=== PATIENT | female | born 1985 | race Caucasian/White ===

== ENCOUNTER 2018-10-22 23:11 | Inpatient (IN) | payer BC ==
[2018-10-23] MEDS ORDERED: Tranexamic Acid 1,000 MG in Sodium Chloride 0.9% 100 ML IV PRN (00:35)
[2018-10-23] MEDS ORDERED: Sodium Chloride 0.9% 10 ML Syringe FLUSH PRN (00:35)
[2018-10-23] MEDS ORDERED: Methylergonovine 0.2 MG/1 ML Amp IM PRN (00:35)
[2018-10-23] MEDS ORDERED: Carboprost Tromethamine 250 MCG/1 ML Amp IM PRN (00:35)
[2018-10-23] MEDS ORDERED: Ampicillin 2 GM in Sodium Chloride 0.9% 100 ML IV ONE (00:35)
[2018-10-23] MEDS ORDERED: Sodium Chloride 0.9% 2.5 ML Syringe FLUSH PRN (00:35)
[2018-10-23] MEDS ORDERED: Butorphanol 1 MG/ML SDV IVPUSH PRN (00:35)
[2018-10-23] MEDS ORDERED: Misoprostol 200 MCG Tab PO PRN (00:35)
[2018-10-23] MEDS ORDERED: Lidocaine 1% 50 ML MDV INJECT PRN (00:35)
[2018-10-23] MEDS ORDERED: Nalbuphine 10 MG/1 ML Vial IVPUSH PRN ×2 (00:35→14:46)
[2018-10-23] MEDS ORDERED: Water For Irrigation,Sterile 1,000 ML Container IRR PRN (00:35)
[2018-10-23] MEDS ORDERED: Oxytocin/0.9 % Sodium Chloride 30 UNIT/500 ML BAG IV SCH (00:45)
[2018-10-23] MEDS: Lactated Ringers 1,000 ML IV SCH ×2 (01:06→12:33)
--- NOTE | 2018-10-23 01:27 | PCM.PREANE ---
Preanesthetic Assessment - Anesthesia/Transfusion/Family Hx Anesthesia History: Prior Anesthesia Without Reaction Family History of Anesthesia Reaction: No Transfusion History: No Prior Transfusion(s) - Review of Systems General: No Symptoms Pulmonary: No Symptoms Cardiovascular: No Symptoms Gastrointestinal: No Symptoms Neurological: No Symptoms Other: Reports: None - Physical Assessment ASA Class: 2 Mental Status: Alert & Oriented x3 Airway Class: Mallampati = 2 Dentition: Reports: Normal Dentition Thyro-Mental Finger Breadths: 3 Mouth Opening Finger Breadths: 3 ROM/Head Extension: Full Lungs: Clear to Auscultation, Normal Respiratory Effort Cardiovascular: Regular Rate, Regular Rhythm - Lab Values: Laboratory Last Values Membrane Rupture POSITIVE 10/22/18 23:27 - Allergies Allergies/Adverse Reactions: Allergies Allergy/AdvReac Type Severity Reaction Status Date / Time azithromycin Allergy Itching Verified 10/23/18 02:03 - Acknowledgements Anesthesia Type Planned: General Anesthesia, Spinal, Epidural Pt an Appropriate Candidate for the Planned Anesthesia: Yes Alternatives and Risks of Anesthesia Discussed w Pt/Guardian: Yes Pt/Guardian Understands and Agrees with Anesthesia Plan: Yes PreAnesthesia Questionnaire HEENT History: Reports: None Cardiovascular History: Reports: None Respiratory History: Reports: None Gastrointestinal History: Reports: None Genitourinary History: Reports: None TELEPHONE MESSENGER History: Reports: Endometriosis : 4 Para: 3 LMP (Approximate): Musculoskeletal History: Reports: Other (See Below) Other Musculoskeletal History: Chronic pelvic pain d/t endometriosis Neurological History: Reports: None Psychiatric History: Reports: Depression Endocrine/Metabolic History: Reports: Hypothyroidism (Radiated, taking supplements now), Obesity/BMI 30+ Hematologic History: Reports: None Immunologic History: Reports: None Oncologic (Cancer) History: Reports: None Dermatologic History: Reports: None - Infectious Disease History Infectious Disease History: Reports: None - Past Surgical History HEENT Surgical History: Reports: Adenoidectomy GI Surgical History: Reports: Appendectomy, Cholecystectomy Female Surgical History: Reports: Section - HOME MEDS Home Medications: Home Meds Doxylamine Succinate [Unisom] 1 tab PO PRN 10/23/18 [History] Levothyroxine Sodium [Synthroid] 1 tab PO DAILY 10/23/18 [History] PNV95/Ferrous Fumarate/FA [ Tablet] 1 tab PO DAILY 10/23/18 [History] - CURRENT (IN HOUSE) MEDS Current Meds: Current Medications Butorphanol Tartrate (Stadol) 1 mg IVPUSH Q1H PRN PRN Reason: Pain Carboprost Tromethamine (Hemabate Ds) 250 mcg IM ASDIRECTED PRN PRN Reason: Post Hemorrhage Tranexamic Acid 1,000 mg/ (Sodium Chloride) 110 mls @ 660 mls/hr IV ONETIME PRN PRN Reason: Bleeding Lactated Ringer's (Ringers, Lactated) 1,000 mls @ 150 mls/hr IV ASDIRECTED [facility] Last Admin: 10/23/18 01:06 Dose: 150 mls/hr Oxytocin/Sodium Chloride (Oxytocin 30 Unit/500 Ml-Ns) 30 unit in 500 mls @ 999 mls/hr IV TITRATE [facility] Ampicillin Sodium 1 gm/ Sodium (Chloride) 50 mls @ 100 mls/hr IV Q4H [facility] Lidocaine HCl (Xylocaine 1%) 50 ml INJECT ONETIME PRN PRN Reason: Laceration repair Methylergonovine Maleate (Methergine) 0.2 mg IM ASDIRECTED PRN PRN Reason: Post Hemorrhage Misoprostol (Cytotec) 200 mcg PO ONETIME PRN PRN Reason: Post Hemorrhage Nalbuphine HCl (Nubain) 10 mg IVPUSH Q1H PRN PRN Reason: Pain (severe 7-10) Sodium Chloride (Saline Flush) 10 ml FLUSH ASDIRECTED PRN PRN Reason: Keep Vein Open Sodium Chloride (Saline Flush) 2.5 ml FLUSH ASDIRECTED PRN PRN Reason: Keep Vein Open Sterile Water (Sterile Water For Irrigation) 1,000 ml IRR ASDIRECTED PRN PRN Reason: delivery Discontinued Medications Ampicillin Sodium 2 gm/ Sodium (Chloride) 100 mls @ 200 mls/hr IV ONETIME ONE Stop: 10/23/18 01:04 Last Admin: 10/23/18 01:06 Dose: 200 mls/hr
[2018-10-23] MEDS: Ampicillin 1 GM in Sodium Chloride 0.9% 50 ML IV SCH ×2 (05:21→09:50)
[2018-10-23] MEDS ORDERED: Citric Acid/Sodium Citrate Solution 30 ML Cup PO ONE (11:47)
[2018-10-23] MEDS ORDERED: ceFAZolin 2 GM in Premix Bag 1 BAG IV ONE (11:47)
[2018-10-23] MEDS ORDERED: Morphine PF 10 MG/10 ML SDV ONE (12:35)
[2018-10-23] MEDS ORDERED: Midazolam 1 MG/ML 2 ML SDV ONE (12:35)
[2018-10-23] MEDS ORDERED: fentaNYL 100 MCG/2 ML SDV ONE (12:35)
[2018-10-23] MEDS ORDERED: Propofol 200 MG/20 ML SDV ONE (12:35)
[2018-10-23] MEDS ORDERED: ceFAZolin 1 GM Vial ONE ×2 (12:36)
[2018-10-23] MEDS ORDERED: Ondansetron 4 MG/2 ML SDV ONE (12:36)
[2018-10-23] MEDS ORDERED: Oxytocin 10 Units/1 ML SDV ONE ×3 (12:36→12:37)
[2018-10-23] MEDS ORDERED: Phenylephrine/Normal Saline 100 MCG/ML 10 ML Syringe ONE (12:37)
--- NOTE | 2018-10-23 12:53 | PCM.SN ---
- Free Text/Narrative Note: Patient seen by Ronal Salinas CRNA and consult written. I also interviewed patient and agree with consult. I discussed possibility of vs. labor epidural. Patient aware of both possibilitieis and agrees. Pt. now schedule for (non ememrgency). Elías Landry MD
--- NOTE | 2018-10-23 14:54 | PCM.OPNOTE ---
- General Post-Op/Procedure Note Date of Surgery/Procedure: 10/23/18 Operative Procedure(s): Repeat Lower segment Findings: Live Male delivered at 1348 , 9/9 Weight 3170g Pre Op Diagnosis: 33 yo @ 39w2d in early labor. Previous X 1. Failed TOLAC Post-Op Diagnosis: same Anesthesia Technique: Spinal Primary Surgeon: Rebekah Aguilar Fluid Replacement, Intraop: 1,350 Output, Urine Amount: 50 EBL in mLs: 450 Complications: None Condition: Good Free Text/Narrative:: Intake & Output 10/22/18 10/23/18 10/23/18 22:59 06:59 14:59 Output Total 150 Balance -150
[2018-10-23] MEDS ORDERED: Lanolin 100% Cream 7 GM Tube TOP PRN (14:55)
[2018-10-23] MEDS ORDERED: Ondansetron 4 MG/2 ML SDV IVPUSH PRN (14:55)
[2018-10-23] MEDS ORDERED: diphenhydrAMINE 50 MG/ML SDV IVPUSH PRN (14:55)
[2018-10-23] MEDS ORDERED: Bisacodyl 10 MG Supp RECTAL PRN (14:55)
[2018-10-23] MEDS ORDERED: Acetaminophen/oxyCODONE 325-5 MG Tab PO PRN (14:55)
[2018-10-23] MEDS ORDERED: Meperidine PF 25 MG/ML Syringe IVPUSH SCH (15:00)
[2018-10-23] MEDS ORDERED: Ondansetron 4 MG/2 ML SDV IVPUSH SCH (15:00)
[2018-10-23] MEDS ORDERED: Lactated Ringers 1,000 ML IV SCH (15:00)
[2018-10-23] MEDS: Ketorolac 30 MG/ML SDV IVPUSH SCH ×2 (15:09→21:08)
--- NOTE | 2018-10-23 15:21 | PCM.POSTAN ---
POST ANESTHESIA ASSESSMENT - MENTAL STATUS Mental Status: Alert, Oriented - VITAL SIGNS Pulse Rate: 55 SaO2: 97 Resp Rate: 16 Blood Pressure: 101/60 - RESPIRATORY Respiratory Status: Respiratory Rate WNL, Airway Patent, O2 Saturation Stable - CARDIOVASCULAR CV Status: Pulse Rate WNL, Blood Pressure Stable - GASTROINTESTINAL GI Status: No Symptoms - PAIN Pain Score: 0 - POST OP HYDRATION Hydration Status: Adequate & Stable - OBSERVATIONS Free Text/Narrative:: Pt stable for discharge to phase II recovery on OB
[2018-10-23] MEDS: Docusate Sodium 100 MG Cap PO SCH (21:08)
[2018-10-24] MEDS: Ketorolac 30 MG/ML SDV IVPUSH SCH ×3 (03:06→14:35)
--- NOTE | 2018-10-24 07:37 | PCM48HPAN ---
Post Anesthesia Note - EVALUATION WITHIN 48HRS OF ANESTHETIC Vital Signs in Normal Range: Yes Patient Participated in Evaluation: Yes Respiratory Function Stable: Yes Airway Patent: Yes Cardiovascular Function Stable: Yes Hydration Status Stable: Yes Pain Control Satisfactory: Yes Nausea and Vomiting Control Satisfactory: Yes Mental Status Recovered: Yes Pulse Rate: 55 Resp Rate: 18 Blood Pressure: 101/60 - COMMENTS/OBSERVATIONS Free Text/Narrative:: Doing great this AM. No complaints.
--- NOTE | 2018-10-24 09:13 | PCM.PNPP ---
- General Info Date of Service: 10/24/18 Subjective Update: 33 yo P4 s/p repeat POD 1 , denies any complains She is , voiding ,ambulating , she has good pain control Functional Status: Reports: Pain Controlled, Tolerating Diet, Ambulating, Urinating - Review of Systems General: Reports: No Symptoms HEENT: Reports: No Symptoms Pulmonary: Reports: No Symptoms Cardiovascular: Reports: No Symptoms Gastrointestinal: Reports: No Symptoms Genitourinary: Reports: No Symptoms Musculoskeletal: Reports: No Symptoms Skin: Reports: No Symptoms Neurological: Reports: No Symptoms Psychiatric: Reports: No Symptoms - General Info Date of Service: 10/24/18 - Patient Data Vital Signs - Most Recent: Last Vital Signs Temp 36.4 C 10/24/18 00:00 Pulse 55 L 10/24/18 07:36 Resp 18 10/24/18 07:36 BP 101/60 10/24/18 07:36 Pulse Ox 100 10/24/18 06:00 Weight - Most Recent: 91.626 kg I&O - Last 24 Hours: Intake & Output 10/23/18 10/24/18 10/24/18 22:59 06:59 14:59 Intake Total 2750 1350 Output Total 160 3400 50 Balance 2590 -3400 1300 Lab Results - Last 24 Hours: Laboratory Results - last 24 hr 10/24/18 Range/Units 06:12 Hgb 11.0 L (12.0-16.0) g/dL Hct 34.1 L (36.0-46.0) % Med Orders - Current: Current Medications Bisacodyl (Dulcolax) 10 mg RECTAL ONETIME PRN PRN Reason: Constipation Butorphanol Tartrate (Stadol) 1 mg IVPUSH Q1H PRN PRN Reason: Pain Carboprost Tromethamine (Hemabate Ds) 250 mcg IM ASDIRECTED PRN PRN Reason: Post Hemorrhage Diphenhydramine HCl (Benadryl) 25 mg IVPUSH Q6H PRN PRN Reason: Itching or Nausea Docusate Sodium (Colace) 100 mg PO BID [facility] Last Admin: 10/23/18 21:08 Dose: 100 mg Emollient Ointment (Lansinoh Hpa) 0 gm TOP ASDIRECTED PRN PRN Reason: Sore Nipples Tranexamic Acid 1,000 mg/ (Sodium Chloride) 110 mls @ 660 mls/hr IV ONETIME PRN PRN Reason: Bleeding Lactated Ringer's (Ringers, Lactated) 1,000 mls @ 150 mls/hr IV ASDIRECTED [facility] Last Admin: 10/23/18 12:33 Dose: 150 mls/hr Oxytocin/Sodium Chloride (Oxytocin 30 Unit/500 Ml-Ns) 30 unit in 500 mls @ 999 mls/hr IV TITRATE [facility] Ampicillin Sodium 1 gm/ Sodium (Chloride) 50 mls @ 100 mls/hr IV Q4H [facility] Last Admin: 10/23/18 09:50 Dose: 100 mls/hr Lactated Ringer's (Ringers, Lactated) 1,000 mls @ 125 mls/hr IV ASDIRECTED [facility] Last Admin: 10/24/18 00:56 Dose: 125 mls/hr Ibuprofen (Motrin) 800 mg PO Q8H PRN PRN Reason: mild pain or fever Ketorolac Tromethamine (Toradol) 30 mg IVPUSH Q6H [facility] Stop: 10/24/18 15:01 Last Admin: 10/24/18 03:06 Dose: 30 mg Lidocaine HCl (Xylocaine 1%) 50 ml INJECT ONETIME PRN PRN Reason: Laceration repair Meperidine HCl (Demerol) 12.5 mg IVPUSH .ONCE [facility] Methylergonovine Maleate (Methergine) 0.2 mg IM ASDIRECTED PRN PRN Reason: Post Hemorrhage Misoprostol (Cytotec) 200 mcg PO ONETIME PRN PRN Reason: Post Hemorrhage Nalbuphine HCl (Nubain) 10 mg IVPUSH Q1H PRN PRN Reason: Pain (severe 7-10) Nalbuphine HCl (Nubain) 5 mg IVPUSH Q3H PRN PRN Reason: Pruritis Stop: 10/24/18 14:47 Last Admin: 10/23/18 15:03 Dose: 5 mg Ondansetron HCl (Zofran) 4 mg IVPUSH .ONCE [facility] Ondansetron HCl (Zofran) 4 mg IVPUSH Q4H PRN PRN Reason: Nausea/Vomiting Oxycodone/Acetaminophen (Percocet 325-5 Mg) 1 tab PO Q4H PRN PRN Reason: Pain (moderate 4-6) Oxycodone/Acetaminophen (Percocet 325-5 Mg) 2 tab PO Q4H PRN PRN Reason: Pain (moderate 4-6) Sodium Chloride (Saline Flush) 10 ml FLUSH ASDIRECTED PRN PRN Reason: Keep Vein Open Sodium Chloride (Saline Flush) 2.5 ml FLUSH ASDIRECTED PRN PRN Reason: Keep Vein Open Sterile Water (Sterile Water For Irrigation) 1,000 ml IRR ASDIRECTED PRN PRN Reason: delivery Discontinued Medications Cefazolin Sodium (Ancef) Confirm Administered Dose 1 gm .ROUTE .STK-MED ONE Stop: 10/23/18 12:37 Cefazolin Sodium (Ancef) Confirm Administered Dose 1 gm .ROUTE .STK-MED ONE Stop: 10/23/18 12:37 Citric Acid/Sodium Citrate (Bicitra Solution) 30 ml PO ONETIME ONE Stop: 10/23/18 11:48 Last Admin: 10/23/18 13:07 Dose: 30 ml Fentanyl (Sublimaze) Confirm Administered Dose 100 mcg .ROUTE .ST-MED ONE Stop: 10/23/18 12:36 Ampicillin Sodium 2 gm/ Sodium (Chloride) 100 mls @ 200 mls/hr IV ONETIME ONE Stop: 10/23/18 01:04 Last Admin: 10/23/18 01:06 Dose: 200 mls/hr Cefazolin Sodium/Dextrose 2 gm (/ Premix) 50 mls @ 100 mls/hr IV ONETIME ONE Stop: 10/23/18 12:16 Midazolam HCl (Versed 1 Mg/Ml) Confirm Administered Dose 2 mg .ROUTE .ST-MED ONE Stop: 10/23/18 12:36 Morphine Sulfate (Duramorph Pf) Confirm Administered Dose 10 mg .ROUTE .STK-MED ONE Stop: 10/23/18 12:36 Ondansetron HCl (Zofran) Confirm Administered Dose 4 mg .ROUTE .STK-MED ONE Stop: 10/23/18 12:37 Oxytocin (Pitocin) Confirm Administered Dose 10 unit .ROUTE .STK-MED ONE Stop: 10/23/18 12:37 Oxytocin (Pitocin) Confirm Administered Dose 10 unit .ROUTE .STK-MED ONE Stop: 10/23/18 12:38 Oxytocin (Pitocin) Confirm Administered Dose 10 unit .ROUTE .STK-MED ONE Stop: 10/23/18 12:38 Phenylephrine HCl (Phenylephrine In Ns 100 Mcg/Ml) Confirm Administered Dose 1 mg .ROUTE .STK-MED ONE Stop: 10/23/18 12:38 Propofol (Diprivan 20 Ml) Confirm Administered Dose 200 mg .ROUTE .STK-MED ONE Stop: 10/23/18 12:36 - Infant Interaction Support Person: Significant Other - Recovery Exam Fundal Tone: Firm Fundal Level: 2 Fingerbreadths Below Umbilicus Fundal Placement: Midline Lochia Amount: Scant Lochia Color: Rubra/Red Perineum Description: Intact, Minimal Bruising/Swelling Episiotomy/Laceration: None Bladder Status: Indwelling Catheter in Place Urinary Elimination: Indwelling Catheter - Exam General: Alert HEENT: Pupils Equal Neck: Supple Lungs: Clear to Auscultation Cardiovascular: Regular Rate GI/Abdominal Exam: Normal Bowel Sounds, Other (pfannesteil skin incision c/d/i) Extremities: Normal Inspection Neurological: No New Focal Deficit Psy/Mental Status: Alert - Problem List & Annotations (1) delivery delivered SNOMED Code(s): 736341763 Code(s): O82 - ENCOUNTER FOR DELIVERY WITHOUT INDICATION Status: Acute Current Visit: Yes - Problem List Review Problem List Initiated/Reviewed/Updated: Yes - My Orders Last 24 Hours: My Active Orders 10/23/18 14:55 Patient Status [ADT] Routine Ambulate [RC] PER UNIT ROUTINE Communication Order [RC] PER UNIT ROUTINE Communication Order [RC] PER UNIT ROUTINE Communication Order [RC] Per Unit Routine May Shower [RC] ASDIRECTED Notify Provider Intake and Out [RC] ASDIRECTED Notify Provider Vital Signs [RC] ASDIRECTED RT Incentive Spirometry [RC] Q2HWA Acetaminophen/oxyCODONE [Percocet 325-5 MG] 1 tab PO Q4H PRN Acetaminophen/oxyCODONE [Percocet 325-5 MG] 2 tab PO Q4H PRN Bisacodyl [Dulcolax] 10 mg RECTAL ONETIME PRN Ibuprofen [Motrin] 800 mg PO Q8H PRN Lanolin [Lansinoh HPA] See Dose Instructions TOP ASDIRECTED PRN Ondansetron [Zofran] 4 mg IVPUSH Q4H PRN diphenhydrAMINE [Benadryl] 25 mg IVPUSH Q6H PRN Assess Lochia [WOMSER] Per Unit Routine Assess Uterine Involution [WOMSER] Per Unit Routine Breast Pump [WOMSER] Per Unit Routine Peripheral IV Discontinue [OM.PC] Routine Sequential Compression Device [OM.PC] Per Unit Routine Resuscitation Status Routine 10/23/18 15:00 Ketorolac [Toradol] 30 mg IVPUSH Q6H Lactated Ringers [Ringers, Lactated] 1,000 ml IV ASDIRECTED 10/23/18 21:00 Docusate Sodium [Colace] 100 mg PO BID - Assessment Assessment:: 33 yo P4 s/p repeat POD 1, stable - Plan Plan:: Pain control as needed VSS as per protocol SCD Continue Routine care
[2018-10-24] MEDS: Docusate Sodium 100 MG Cap PO SCH ×2 (09:31→21:19)
--- NOTE | 2018-10-24 14:35 | OR ---
SURGEON: SAMSON EDGE PREOPERATIVE DIAGNOSES: A 33-year-old G4, P3, at 39 weeks 2 days. Previous history of , desiring TOLAC, failed TOLAC, for repeat . GBS positive. POSTOPERATIVE DIAGNOSES: A 33-year-old G4, P3, at 39 weeks 2 days. Previous history of , desiring TOLAC, failed TOLAC, for repeat . GBS positive. PROCEDURE: Repeat low transverse section. ESTIMATED BLOOD LOSS: 450 IV FLUIDS: 1350 URINE OUTPUT: 50 ANESTHESIA: Spinal. FINDINGS: Live male delivered at 1348 in cephalic presentation. 9/9 , weight 7lb0oz BRIEF HISTORY ABOUT THE PATIENT: She was a 33-year-old G4, P3, at 39 weeks and 2 days who came in complaining of contractions. She had history of previous section. She also complained of leakage of fluid. The patient wanted TOLAC, she was given. The risks, benefits, alternatives, and wished to proceed. When patient came in, she was 3 cm dilated. She received ampicillin for GBS prophylaxis. The patient was monitored and after 12 hours, the patient was stable at 3 cm. She was jostin irregularly. The tracing was category 1. At this point, she was offered a repeat , which she consented to. She was explained risks, benefits, and alternatives. DESCRIPTION OF PROCEDURE: The patient was taken to the operating room where spinal anesthesia was performed without difficulty. She was prepared and draped in the dorsal supine position with a leftward tilt. A Pfannenstiel skin incision was made with a scalpel and carried down to the fascia with the Bovie. The fascia was incised and extended laterally. The fascia was then from the rectus muscle superiorly and inferiorly. The Paul retractor was placed in to retract the bladder and expose the lower uterine segment. The lower uterine segment was noted. The bladder flap was created. The lower transverse incision was then made, was extended manually . The fetus was in OT position and was elevated to the uterine incision. The fetus was then delivered and delayed cord clamping was observed. The cord was clamped and cut. The was handed over to awaiting back sewer. The placenta was then delivered via controlled cord traction, cord delivered. Then, the cord blood gases were obtained. The uterus was sutured in two layers, first layer with 0 Vicryl and second area with 0 Monocryl. Then, the peritoneum was closed. Then, the rectus muscle was also closed with two mattress stitches. The fascia was closed with 0 Vicryl. The subcutaneous mass was closed and the skin was closed with 3-0 Monocryl on a Caden needle. All instrument and pad counts were correct x2. The patient tolerated the procedure well and was taken to the recovery room in stable condition. CARLOS MULLIGAN /[id number] MTDD
[2018-10-24] MEDS: Ibuprofen 800 MG Tab PO PRN (21:19)
[2018-10-24] MEDS: Acetaminophen/oxyCODONE 325-5 MG Tab PO PRN (22:53)
[2018-10-25] MEDS: Acetaminophen/oxyCODONE 325-5 MG Tab PO PRN (04:04)
[2018-10-25] MEDS: Ibuprofen 800 MG Tab PO PRN (05:11)
--- NOTE | 2018-10-25 08:27 | PCM.PNPP ---
<Sera Demarco - Last Filed: 10/25/18 08:25> - General Info Date of Service: 10/25/18 Functional Status: Reports: Pain Controlled, Tolerating Diet, Ambulating, Urinating - Review of Systems General: Denies: Fever, Weakness, Fatigue Pulmonary: Denies: Shortness of Breath, Pleuritic Chest Pain, Cough Cardiovascular: Denies: Chest Pain, Palpitations, Dyspnea on Exertion Gastrointestinal: Denies: Abdominal Pain Genitourinary: Denies: Dysuria - General Info Date of Service: 10/25/18 - Patient Data Vital Signs - Most Recent: Last Vital Signs Temp 37.1 C 10/25/18 04:00 Pulse 71 10/25/18 04:00 Resp 16 10/25/18 04:00 BP 124/80 10/25/18 04:00 Pulse Ox 100 10/25/18 04:00 Weight - Most Recent: 91.626 kg Med Orders - Current: Current Medications Bisacodyl (Dulcolax) 10 mg RECTAL ONETIME PRN PRN Reason: Constipation Butorphanol Tartrate (Stadol) 1 mg IVPUSH Q1H PRN PRN Reason: Pain Carboprost Tromethamine (Hemabate Ds) 250 mcg IM ASDIRECTED PRN PRN Reason: Post Hemorrhage Diphenhydramine HCl (Benadryl) 25 mg IVPUSH Q6H PRN PRN Reason: Itching or Nausea Docusate Sodium (Colace) 100 mg PO BID [facility] Last Admin: 10/24/18 21:19 Dose: 100 mg Emollient Ointment (Lansinoh Hpa) 0 gm TOP ASDIRECTED PRN PRN Reason: Sore Nipples Tranexamic Acid 1,000 mg/ (Sodium Chloride) 110 mls @ 660 mls/hr IV ONETIME PRN PRN Reason: Bleeding Lactated Ringer's (Ringers, Lactated) 1,000 mls @ 150 mls/hr IV ASDIRECTED [facility] Last Admin: 10/23/18 12:33 Dose: 150 mls/hr Oxytocin/Sodium Chloride (Oxytocin 30 Unit/500 Ml-Ns) 30 unit in 500 mls @ 999 mls/hr IV TITRATE [facility] Lactated Ringer's (Ringers, Lactated) 1,000 mls @ 125 mls/hr IV ASDIRECTED [facility] Last Admin: 10/24/18 00:56 Dose: 125 mls/hr Ibuprofen (Motrin) 800 mg PO Q8H PRN PRN Reason: mild pain or fever Last Admin: 10/25/18 05:11 Dose: 800 mg Lidocaine HCl (Xylocaine 1%) 50 ml INJECT ONETIME PRN PRN Reason: Laceration repair Meperidine HCl (Demerol) 12.5 mg IVPUSH .ONCE [facility] Methylergonovine Maleate (Methergine) 0.2 mg IM ASDIRECTED PRN PRN Reason: Post Hemorrhage Misoprostol (Cytotec) 200 mcg PO ONETIME PRN PRN Reason: Post Hemorrhage Nalbuphine HCl (Nubain) 10 mg IVPUSH Q1H PRN PRN Reason: Pain (severe 7-10) Ondansetron HCl (Zofran) 4 mg IVPUSH .ONCE [facility] Ondansetron HCl (Zofran) 4 mg IVPUSH Q4H PRN PRN Reason: Nausea/Vomiting Oxycodone/Acetaminophen (Percocet 325-5 Mg) 1 tab PO Q4H PRN PRN Reason: Pain (moderate 4-6) Last Admin: 10/25/18 04:04 Dose: 1 tab Oxycodone/Acetaminophen (Percocet 325-5 Mg) 2 tab PO Q4H PRN PRN Reason: Pain (moderate 4-6) Sodium Chloride (Saline Flush) 10 ml FLUSH ASDIRECTED PRN PRN Reason: Keep Vein Open Sodium Chloride (Saline Flush) 2.5 ml FLUSH ASDIRECTED PRN PRN Reason: Keep Vein Open Sterile Water (Sterile Water For Irrigation) 1,000 ml IRR ASDIRECTED PRN PRN Reason: delivery Discontinued Medications Cefazolin Sodium (Ancef) Confirm Administered Dose 1 gm .ROUTE .STK-MED ONE Stop: 10/23/18 12:37 Cefazolin Sodium (Ancef) Confirm Administered Dose 1 gm .ROUTE .STK-MED ONE Stop: 10/23/18 12:37 Citric Acid/Sodium Citrate (Bicitra Solution) 30 ml PO ONETIME ONE Stop: 10/23/18 11:48 Last Admin: 10/23/18 13:07 Dose: 30 ml Fentanyl (Sublimaze) Confirm Administered Dose 100 mcg .ROUTE .STK-MED ONE Stop: 10/23/18 12:36 Ampicillin Sodium 2 gm/ Sodium (Chloride) 100 mls @ 200 mls/hr IV ONETIME ONE Stop: 10/23/18 01:04 Last Admin: 10/23/18 01:06 Dose: 200 mls/hr Ampicillin Sodium 1 gm/ Sodium (Chloride) 50 mls @ 100 mls/hr IV Q4H [facility] Last Admin: 10/23/18 09:50 Dose: 100 mls/hr Cefazolin Sodium/Dextrose 2 gm (/ Premix) 50 mls @ 100 mls/hr IV ONETIME ONE Stop: 10/23/18 12:16 Last Admin: 10/24/18 13:48 Dose: Not Given Ketorolac Tromethamine (Toradol) 30 mg IVPUSH Q6H [facility] Stop: 10/24/18 15:01 Last Admin: 10/24/18 14:35 Dose: 30 mg Midazolam HCl (Versed 1 Mg/Ml) Confirm Administered Dose 2 mg .ROUTE .STK-MED ONE Stop: 10/23/18 12:36 Morphine Sulfate (Duramorph Pf) Confirm Administered Dose 10 mg .ROUTE .STK-MED ONE Stop: 10/23/18 12:36 Nalbuphine HCl (Nubain) 5 mg IVPUSH Q3H PRN PRN Reason: Pruritis Stop: 10/24/18 14:47 Last Admin: 10/23/18 15:03 Dose: 5 mg Ondansetron HCl (Zofran) Confirm Administered Dose 4 mg .ROUTE .STK-MED ONE Stop: 10/23/18 12:37 Oxytocin (Pitocin) Confirm Administered Dose 10 unit .ROUTE .STK-MED ONE Stop: 10/23/18 12:37 Oxytocin (Pitocin) Confirm Administered Dose 10 unit .ROUTE .STK-MED ONE Stop: 10/23/18 12:38 Oxytocin (Pitocin) Confirm Administered Dose 10 unit .ROUTE .STK-MED ONE Stop: 10/23/18 12:38 Phenylephrine HCl (Phenylephrine In Ns 100 Mcg/Ml) Confirm Administered Dose 1 mg .ROUTE .STK-MED ONE Stop: 10/23/18 12:38 Propofol (Diprivan 20 Ml) Confirm Administered Dose 200 mg .ROUTE .STK-MED ONE Stop: 10/23/18 12:36 - Infant Interaction Infant Disposition, : [place] in Room with Family Interaction: Holding Infant Feeding: Attempted ; Nursed Fair/Poor, Encouraged to Breastfeed Support Person: Significant Other - Recovery Exam Fundal Tone: Firm Fundal Level: 1 Fingerbreadths Below Umbilicus Fundal Placement: Midline Lochia Amount: Scant Lochia Color: Rubra/Red Perineum Description: Intact, Minimal Bruising/Swelling Episiotomy/Laceration: None Bladder Status: Voiding Urinary Elimination: Indwelling Catheter - Exam General: Alert, Oriented Neck: Supple Lungs: Clear to Auscultation, Normal Respiratory Effort Cardiovascular: Regular Rate, Regular Rhythm GI/Abdominal Exam: Normal Bowel Sounds, Soft, Non-Tender, No Mass Extremities: Normal Inspection, Normal Range of Motion, Normal Capillary Refill , Pedal Edema Skin: Warm, Dry, Intact - Problem List Review Problem List Initiated/Reviewed/Updated: Yes - Assessment Assessment:: POD #2 s/p repeat , minimal pain and lochia. Encouraged to breast feed. - Plan Plan:: Discharge instructions reviewed. Pelvic rest for 6 weeks. Rx for Percocet to use as needed for pain. Continue PNV while breast feeding. No lifting greater than 10lbs for 6 weeks. Instructed patient to call if she develops fever greater than 101 or bleeding through a large pad an hour. F/U with [facility] in 2 and 6 weeks. <Rebekah Aguilar - Last Filed: 10/25/18 08:42> - Patient Data Vital Signs - Most Recent: Last Vital Signs Temp 37.1 C 10/25/18 04:00 Pulse 71 10/25/18 04:00 Resp 16 10/25/18 04:00 BP 124/80 10/25/18 04:00 Pulse Ox 100 10/25/18 04:00 Med Orders - Current: Current Medications Bisacodyl (Dulcolax) 10 mg RECTAL ONETIME PRN PRN Reason: Constipation Butorphanol Tartrate (Stadol) 1 mg IVPUSH Q1H PRN PRN Reason: Pain Carboprost Tromethamine (Hemabate Ds) 250 mcg IM ASDIRECTED PRN PRN Reason: Post Hemorrhage Diphenhydramine HCl (Benadryl) 25 mg IVPUSH Q6H PRN PRN Reason: Itching or Nausea Docusate Sodium (Colace) 100 mg PO BID [facility] Last Admin: 10/24/18 21:19 Dose: 100 mg Emollient Ointment (Lansinoh Hpa) 0 gm TOP ASDIRECTED PRN PRN Reason: Sore Nipples Tranexamic Acid 1,000 mg/ (Sodium Chloride) 110 mls @ 660 mls/hr IV ONETIME PRN PRN Reason: Bleeding Lactated Ringer's (Ringers, Lactated) 1,000 mls @ 150 mls/hr IV ASDIRECTED [facility] Last Admin: 10/23/18 12:33 Dose: 150 mls/hr Oxytocin/Sodium Chloride (Oxytocin 30 Unit/500 Ml-Ns) 30 unit in 500 mls @ 999 mls/hr IV TITRATE [facility] Lactated Ringer's (Ringers, Lactated) 1,000 mls @ 125 mls/hr IV ASDIRECTED [facility] Last Admin: 10/24/18 00:56 Dose: 125 mls/hr Ibuprofen (Motrin) 800 mg PO Q8H PRN PRN Reason: mild pain or fever Last Admin: 10/25/18 05:11 Dose: 800 mg Lidocaine HCl (Xylocaine 1%) 50 ml INJECT ONETIME PRN PRN Reason: Laceration repair Meperidine HCl (Demerol) 12.5 mg IVPUSH .ONCE [facility] Methylergonovine Maleate (Methergine) 0.2 mg IM ASDIRECTED PRN PRN Reason: Post Hemorrhage Misoprostol (Cytotec) 200 mcg PO ONETIME PRN PRN Reason: Post Hemorrhage Nalbuphine HCl (Nubain) 10 mg IVPUSH Q1H PRN PRN Reason: Pain (severe 7-10) Ondansetron HCl (Zofran) 4 mg IVPUSH .ONCE [facility] Ondansetron HCl (Zofran) 4 mg IVPUSH Q4H PRN PRN Reason: Nausea/Vomiting Oxycodone/Acetaminophen (Percocet 325-5 Mg) 1 tab PO Q4H PRN PRN Reason: Pain (moderate 4-6) Last Admin: 10/25/18 04:04 Dose: 1 tab Oxycodone/Acetaminophen (Percocet 325-5 Mg) 2 tab PO Q4H PRN PRN Reason: Pain (moderate 4-6) Sodium Chloride (Saline Flush) 10 ml FLUSH ASDIRECTED PRN PRN Reason: Keep Vein Open Sodium Chloride (Saline Flush) 2.5 ml FLUSH ASDIRECTED PRN PRN Reason: Keep Vein Open Sterile Water (Sterile Water For Irrigation) 1,000 ml IRR ASDIRECTED PRN PRN Reason: delivery Discontinued Medications Cefazolin Sodium (Ancef) Confirm Administered Dose 1 gm .ROUTE .STK-MED ONE Stop: 10/23/18 12:37 Cefazolin Sodium (Ancef) Confirm Administered Dose 1 gm .ROUTE .STK-MED ONE Stop: 10/23/18 12:37 Citric Acid/Sodium Citrate (Bicitra Solution) 30 ml PO ONETIME ONE Stop: 10/23/18 11:48 Last Admin: 10/23/18 13:07 Dose: 30 ml Fentanyl (Sublimaze) Confirm Administered Dose 100 mcg .ROUTE .STK-MED ONE Stop: 10/23/18 12:36 Ampicillin Sodium 2 gm/ Sodium (Chloride) 100 mls @ 200 mls/hr IV ONETIME ONE Stop: 10/23/18 01:04 Last Admin: 10/23/18 01:06 Dose: 200 mls/hr Ampicillin Sodium 1 gm/ Sodium (Chloride) 50 mls @ 100 mls/hr IV Q4H [facility] Last Admin: 10/23/18 09:50 Dose: 100 mls/hr Cefazolin Sodium/Dextrose 2 gm (/ Premix) 50 mls @ 100 mls/hr IV ONETIME ONE Stop: 10/23/18 12:16 Last Admin: 10/24/18 13:48 Dose: Not Given Ketorolac Tromethamine (Toradol) 30 mg IVPUSH Q6H [facility] Stop: 10/24/18 15:01 Last Admin: 10/24/18 14:35 Dose: 30 mg Midazolam HCl (Versed 1 Mg/Ml) Confirm Administered Dose 2 mg .ROUTE .STK-MED ONE Stop: 10/23/18 12:36 Morphine Sulfate (Duramorph Pf) Confirm Administered Dose 10 mg .ROUTE .STK-MED ONE Stop: 10/23/18 12:36 Nalbuphine HCl (Nubain) 5 mg IVPUSH Q3H PRN PRN Reason: Pruritis Stop: 10/24/18 14:47 Last Admin: 01/22/19 15:03 Dose: 5 mg Ondansetron HCl (Zofran) Confirm Administered Dose 4 mg .ROUTE .STK-MED ONE Stop: 10/23/18 12:37 Oxytocin (Pitocin) Confirm Administered Dose 10 unit .ROUTE .STK-MED ONE Stop: 10/23/18 12:37 Oxytocin (Pitocin) Confirm Administered Dose 10 unit .ROUTE .STK-MED ONE Stop: 10/23/18 12:38 Oxytocin (Pitocin) Confirm Administered Dose 10 unit .ROUTE .STK-MED ONE Stop: 10/23/18 12:38 Phenylephrine HCl (Phenylephrine In Ns 100 Mcg/Ml) Confirm Administered Dose 1 mg .ROUTE .STK-MED ONE Stop: 10/23/18 12:38 Propofol (Diprivan 20 Ml) Confirm Administered Dose 200 mg .ROUTE .STK-MED ONE Stop: 10/23/18 12:36 - Problem List & Annotations (1) delivery delivered SNOMED Code(s): 562590415 Code(s): O82 - ENCOUNTER FOR DELIVERY WITHOUT INDICATION Status: Acute Current Visit: Yes - Assessment Assessment:: POD 2 , s/p repeat , stable , will like to go home - Plan Plan:: Agree with plan , will have colposcopy
[2018-10-25 10:15] VITALS: BP 125/81
== END 2018-10-25 11:20 | disposition home or self-care (01) | DRG 540 ==
LOC: MW.OBCHECK 23:11 → MW.OB 23:23 → MW.OBCHECK 10-23 00:35 → OBSVTOIN 10-23 14:14
PROVIDERS: ADMIT Obstetrics & Gynecology; ATTEND Obstetrics & Gynecology
PROC: 10D00Z1 Extraction of Products of Conception, Low, Open Approach (ICD-10-PCS; principal; 2018-10-23)
PROC: 6A550ZT Pheresis of Cord Blood Stem Cells, Single (ICD-10-PCS; principal; 2018-10-23)
DX: O34.211 Maternal care for low transverse scar from previous cesarean delivery (principal); O99.824 Streptococcus B carrier state complicating childbirth; O98.32 Other infections with a predominantly sexual mode of transmission complicating childbirth; A63.0 Anogenital (venereal) warts; O99.284 Endocrine, nutritional and metabolic diseases complicating childbirth; E03.9 Hypothyroidism, unspecified; Z37.0 Single live birth; Z79.899 Other long term (current) drug therapy; Z3A.39 39 weeks gestation of pregnancy; O66.41 Failed attempted vaginal birth after previous cesarean delivery; N85.8 Other specified noninflammatory disorders of uterus; Z90.49 Acquired absence of other specified parts of digestive tract; Z88.1 Allergy status to other antibiotic agents
CPT/HCPCS: 36415; 59025; 84112; 85014; 85018; 85027; 86850; 86900; 86901; A9270-GY; J0290; J0690; J1885; J2250; J2270; J2300; J2370; J2405; J2590; J2704; J3010; J7030; J7050; J7120

== ENCOUNTER 2020-04-10 10:32 | Day surgery (SDC) | payer BC ==
[2020-04-10] MEDS ORDERED: Lidocaine 2% 5 ML SDV ONE (11:24)
[2020-04-10] MEDS ORDERED: Midazolam 1 MG/ML 2 ML SDV ONE (11:25)
[2020-04-10] MEDS ORDERED: Propofol 200 MG/20 ML SDV ONE ×2 (11:25→12:50)
[2020-04-10] MEDS ORDERED: fentaNYL 100 MCG/2 ML SDV ONE (11:25)
--- NOTE | 2020-04-10 11:26 | PCM.PREANE ---
Preanesthetic Assessment - Anesthesia/Transfusion/Family Hx Anesthesia History: Prior Anesthesia Without Reaction Family History of Anesthesia Reaction: No Transfusion History: No Prior Transfusion(s) - Review of Systems General: No Symptoms Pulmonary: No Symptoms Cardiovascular: No Symptoms Gastrointestinal: No Symptoms Neurological: No Symptoms Other: Reports: None - Physical Assessment NPO Status Date: 04/09/20 Height: 5 ft 1.5 in Weight: 93.894 kg ASA Class: 2 Mental Status: Alert & Oriented x3 Airway Class: Mallampati = 2 Dentition: Reports: Normal Dentition (braces upper and lower archs) ROM/Head Extension: Full Lungs: Clear to Auscultation, Normal Respiratory Effort Cardiovascular: Regular Rate, Regular Rhythm - Lab Values: Laboratory Last Values Hgb 13.6 g/dL (12.0-16.0) 04/09/20 08:50 Hct 42.3 % (36.0-46.0) 04/09/20 08:50 HCG, Qual NEGATIVE (NEG) 04/09/20 08:50 - Allergies Allergies/Adverse Reactions: Allergies Allergy/AdvReac Type Severity Reaction Status Date / Time azithromycin Allergy Itching Verified 04/07/20 09:51 - Blood Blood Available: No - Anesthesia Plan Pre-Op Medication Ordered: None - Acknowledgements Anesthesia Type Planned: General Anesthesia Pt an Appropriate Candidate for the Planned Anesthesia: Yes Alternatives and Risks of Anesthesia Discussed w Pt/Guardian: Yes Pt/Guardian Understands and Agrees with Anesthesia Plan: Yes Additional Comments: PMH: thyroid replacement, PCOS PLAN: ga/lma PreAnesthesia Questionnaire HEENT History: Reports: Other (See Below) Other HEENT History: dental braces Cardiovascular History: Reports: None Respiratory History: Reports: None Gastrointestinal History: Reports: None Genitourinary History: Reports: None LEATHER REPAIRER History: Reports: Endometriosis, Polycystic Ovaries, Musculoskeletal History: Reports: None, Other (See Below) Neurological History: Reports: None Psychiatric History: Reports: Anxiety, Depression Endocrine/Metabolic History: Reports: Hypothyroidism, Obesity/BMI 30+ Hematologic History: Reports: None Immunologic History: Reports: None Oncologic (Cancer) History: Reports: None Dermatologic History: Reports: None - Infectious Disease History Infectious Disease History: Reports: None - Past Surgical History Head Surgeries/Procedures: Reports: None HEENT Surgical History: Reports: Adenoidectomy, Tonsillectomy Cardiovascular Surgical History: Reports: None Respiratory Surgical History: Reports: None GI Surgical History: Reports: Appendectomy, Cholecystectomy Female Surgical History: Reports: Section Other Female Surgeries/Procedures: ETOP Endocrine Surgical History: Reports: None, Thyroidectomy Neurological Surgical History: Reports: None Musculoskeletal Surgical History: Reports: None Oncologic Surgical History: Reports: None Dermatological Surgical History: Reports: None - SUBSTANCE USE Smoking Status *Q: Never Smoker Recreational Drug Use History: No - HOME MEDS Home Medications: Home Meds Levothyroxine Sodium [Synthroid] 125 mcg PO DAILY 10/23/18 [History] L.acidoph,Paracasei, B.lactis [Probiotic] 1 tab PO DAILY PRN 04/07/20 [History]
[2020-04-10] MEDS ORDERED: Lactated Ringers 1,000 ML IV SCH (12:00)
[2020-04-10] MEDS ORDERED: Ketorolac 30 MG/ML SDV IVPUSH ONE (13:16)
[2020-04-10] MEDS ORDERED: Ketorolac 30 MG/ML SDV IVPUSH PRN (13:16)
[2020-04-10] MEDS ORDERED: Morphine 4 MG/ML Syringe IVPUSH PRN (13:16)
[2020-04-10] MEDS ORDERED: Ondansetron 4 MG/2 ML SDV IVPUSH PRN (13:16)
[2020-04-10] MEDS ORDERED: Acetaminophen/oxyCODONE 325-5 MG Tab PO PRN ×2 (13:16)
[2020-04-10] MEDS ORDERED: Promethazine 25 MG/ML SDV IM PRN (13:16)
--- NOTE | 2020-04-10 13:23 | PCM.OPNOTE ---
- General Post-Op/Procedure Note Date of Surgery/Procedure: 04/10/20 Operative Procedure(s): LEEP Findings: Normal sized anteverted uterus Pre Op Diagnosis: Persistent CHARLIE 1 Post-Op Diagnosis: Persistent CHARLIE 1 Anesthesia Technique: MAC Primary Surgeon: Rebekah Aguilar Anesthesia Provider: Dayron Salinas Pathology: ECC and Cervical cone Fluid Replacement, Intraop: 600 EBL in mLs: 10 Complications: None Condition: Good
--- NOTE | 2020-04-10 13:29 | PCM48HPAN ---
Post Anesthesia Note - EVALUATION WITHIN 48HRS OF ANESTHETIC Vital Signs in Normal Range: Yes Patient Participated in Evaluation: Yes Respiratory Function Stable: Yes Airway Patent: Yes Cardiovascular Function Stable: Yes Hydration Status Stable: Yes Pain Control Satisfactory: Yes Nausea and Vomiting Control Satisfactory: Yes Mental Status Recovered: Yes Vital Signs: Last Vital Signs Temp 98.6 F 04/10/20 13:05 Pulse 91 04/10/20 13:26 Resp 12 04/10/20 13:26 BP 118/64 04/10/20 13:26 Pulse Ox 100 04/10/20 13:26
--- NOTE | 2020-04-10 13:29 | PCM.POSTAN ---
POST ANESTHESIA ASSESSMENT - MENTAL STATUS Mental Status: Alert, Oriented - VITAL SIGNS Vital Signs: Last Vital Signs Temp 98.6 F 04/10/20 13:05 Pulse 91 04/10/20 13:26 Resp 12 04/10/20 13:26 BP 118/64 04/10/20 13:26 Pulse Ox 100 04/10/20 13:26 - RESPIRATORY Respiratory Status: Respiratory Rate WNL, Airway Patent, O2 Saturation Stable - CARDIOVASCULAR CV Status: Pulse Rate WNL, Blood Pressure Stable - GASTROINTESTINAL GI Status: No Symptoms - POST OP HYDRATION Hydration Status: Adequate & Stable
[2020-04-10 14:18] VITALS: BP 119/75; PULSE 86
--- NOTE | 2020-04-13 11:37 | OR ---
DATE OF PROCEDURE: 04/10/2020 SURGEON: SAMSON EDGE PREOPERATIVE DIAGNOSIS: A 34-year-old, para 4, with persistent cervical intraepithelial neoplasia 1. POSTOPERATIVE DIAGNOSIS: A 34-year-old, para 4, with persistent cervical intraepithelial neoplasia 1. PROCEDURE: Loop electrosurgical excision procedure. ANESTHESIA: MAC. ESTIMATED BLOOD LOSS: Negligible. ANESTHESIOLOGIST: Dayron Salinas. COMPLICATIONS: None SPECIMEN: Cervical Cone NOTES AND FINDINGS: A normal-sized anteverted uterus, slight acetowhite noted at 3 o'clock position. BRIEF HISTORY: She is a 34-year-old, para 4, who had an abnormal Pap smear,she had colposcopy done that showed CHARLIE 1. She had a repeated Pap in 1 year , which was also abnormal, and repeat colposcopy - CHARLIE 1. At this point, she was given the option of continued surveillance versus LEEP. She desired LEEP procedure, and the patient was explained the risks, benefits, and alternatives, and she decided to proceed. DESCRIPTION OF PROCEDURE: The patient was taken to the operating room where she was placed in the dorsal lithotomy position with the Hieu stirrups. She was prepared and draped in the normal fashion. An insulated bivalve speculum was then inserted in the vagina to expose the cervix. The cervix was prepped with acetic acid and swabbed to visualize the acetowhite area. Then, lidocaine with epinephrine was injected at 3, 6, 9, and 12 o'clock. About 10 mL was injected cervical stroma. A 20 x 8 mm loop electrode was then obtained and a cone biopsy was done using a blended current of 60 clotting and 60 coagulation. There was no bleeding after the procedure. Then ECC was obtained and then the bed of the cervical cone was cauterized with ball electrode. Then Monsel paste was again applied at the cervical base. Hemostasis was noted after the procedure. The patient tolerated the procedure and all instrument and pad counts were correct x2. The speculum was removed, and the patient was taken to the recovery room in stable condition. CARLOS MULLIGAN /[id number]
== END 2020-04-10 14:10 | disposition home or self-care (01) ==
LOC: MW.SDS 10:32
PROVIDERS: ATTEND Obstetrics & Gynecology
DX: N87.0 Mild cervical dysplasia (principal); E03.9 Hypothyroidism, unspecified; E66.9 Obesity, unspecified; F41.9 Anxiety disorder, unspecified; F32.9 Major depressive disorder, single episode, unspecified; Z88.1 Allergy status to other antibiotic agents; Z98.890 Other specified postprocedural states; Z79.890 Hormone replacement therapy; Z79.899 Other long term (current) drug therapy; Z68.38 Body mass index [BMI] 38.0-38.9, adult
CPT/HCPCS: 36415; 57522; 84703; 85014; 85018; J2001; J2250; J2704; J3010; J7120

== ENCOUNTER 2023-11-22 05:10 | Inpatient (IN) | payer BC ==
[2023-11-22] MEDS ORDERED: Sodium Chloride 0.9% 2.5 ML Syringe FLUSH PRN (05:17)
[2023-11-22] MEDS ORDERED: Citric Acid/Sodium Citrate Solution 30 ML Cup PO ONE (05:17)
[2023-11-22] MEDS ORDERED: Sodium Chloride 0.9% 10 ML Syringe FLUSH PRN (05:17)
[2023-11-22] MEDS ORDERED: Sodium Chloride 0.9% 20 ML SDV IV PRN (05:17)
[2023-11-22] MEDS ORDERED: Oxytocin/0.9 % Sodium Chloride 30 UNIT/500 ML BAG IV SCH ×2 (05:30→09:30)
[2023-11-22] MEDS: Lactated Ringers 1,000 ML IV SCH (05:30)
[2023-11-22 05:52] LABS: HEMATOCRIT 34.8 % (37.0-47.0); HEMOGLOBIN 11.8 g/dL (12.0-16.0); MEAN CORPUSCULAR HGB CONC 33.9 g/dL (32.0-36.0); MEAN CORPUSCULAR VOLUME 82.5 fL (83.0-99.0); PLATELET COUNT,PLT 238 K/uL (150-400); RED BLOOD CELL COUNT 4.22 M/uL (4.10-5.30); WHITE BLOOD CELL COUNT,WBC 9.86 K/uL (3.9-11.3)
[2023-11-22] MEDS ORDERED: ceFAZolin 2 GM in Sodium Chloride 0.9% 50 ML IV ONE (06:43)
[2023-11-22] MEDS ORDERED: fentaNYL 50 MCG/ML SDV IVPUSH PRN ×2 (06:54)
[2023-11-22] MEDS ORDERED: droPERidol 5 MG/2 ML SDV IVPUSH PRN (06:54)
[2023-11-22] MEDS ORDERED: HYDROmorphone 1 MG/ML Syringe IVPUSH PRN (06:54)
[2023-11-22] MEDS ORDERED: Morphine 2 MG/ML SYRINGE IVPUSH PRN (06:54)
[2023-11-22] MEDS ORDERED: Acetaminophen/oxyCODONE 325-5 MG Tab PO PRN ×2 (06:54→09:21)
[2023-11-22] MEDS ORDERED: ePHEDrine 50 MG/ML SDV IVPUSH PRN (06:54)
[2023-11-22] MEDS ORDERED: Ondansetron 4 MG/2 ML SDV IVPUSH PRN ×2 (06:54)
[2023-11-22] MEDS ORDERED: Metoclopramide 10 MG/2 ML SDV IVPUSH PRN (06:54)
[2023-11-22] MEDS ORDERED: Naloxone 0.4 MG/ML SDV IVPUSH PRN (06:54)
[2023-11-22] MEDS ORDERED: Albuterol 0.083% 2.5 MG/3 ML Neb Soln NEB PRN (06:54)
[2023-11-22] MEDS ORDERED: Phenylephrine 1% 10 MG/ML SDV ONE (07:08)
[2023-11-22] MEDS ORDERED: Ketorolac 30 MG/ML SDV ONE ×2 (07:09→09:00)
[2023-11-22] MEDS ORDERED: Ropivacaine 0.5% 5 MG/ML 30 ML SDV ONE (07:09)
[2023-11-22] MEDS ORDERED: Bupivacaine 0.25% 30 ML SDV ONE (07:09)
[2023-11-22] MEDS ORDERED: ceFAZolin 1 GM Vial ONE (07:09)
[2023-11-22] MEDS ORDERED: EPINEPHrine 1 MG/1 ML Amp ONE (07:09)
[2023-11-22] MEDS ORDERED: Morphine PF 10 MG/10 ML SDV ONE (07:09)
[2023-11-22] MEDS ORDERED: Oxytocin 10 Units/1 ML SDV ONE (07:09)
[2023-11-22] MEDS ORDERED: fentaNYL 100 MCG/2 ML SDV ONE (07:09)
[2023-11-22] MEDS ORDERED: Tranexamic Acid 1,000 MG/10 ML Vial ONE (08:16)
[2023-11-22] MEDS ORDERED: Misoprostol 200 MCG Tab RECTAL PRN (09:21)
[2023-11-22] MEDS ORDERED: Lanolin 100% Cream 7 GM Tube TOP PRN (09:21)
[2023-11-22] MEDS ORDERED: Methylergonovine 0.2 MG/1 ML Amp IM PRN (09:21)
[2023-11-22] MEDS ORDERED: Bisacodyl 10 MG Supp RECTAL PRN (09:21)
[2023-11-22] MEDS ORDERED: Oxytocin 10 Units/1 ML SDV IM PRN (09:21)
[2023-11-22] MEDS ORDERED: diphenhydrAMINE 50 MG/ML SDV IVPUSH PRN (09:21)
[2023-11-22] MEDS ORDERED: Lactated Ringers 1,000 ML IV SCH (09:30)
[2023-11-22] MEDS: Acetaminophen 1,000 MG in Premix Bag 1 BAG IV SCH (09:58)
[2023-11-22] MEDS: Ondansetron 4 MG/2 ML SDV IVPUSH PRN (11:23)
[2023-11-22] MEDS: droPERidol 5 MG/2 ML SDV IVPUSH ONE (12:33)
[2023-11-22] MEDS: Ketorolac 30 MG/ML SDV IVPUSH SCH (14:52)
[2023-11-22] MEDS: Docusate Sodium 100 MG Cap PO SCH (21:00)
[2023-11-22] MEDS: diphenhydrAMINE 50 MG/ML SDV IVPUSH PRN (22:47)
[2023-11-23 06:18] LABS: HEMATOCRIT 31.4 % (37.0-47.0); HEMOGLOBIN 10.3 g/dL (12.0-16.0)
[2023-11-23] MEDS: Ibuprofen 800 MG Tab PO PRN (15:04)
[2023-11-23] MEDS: Acetaminophen/oxyCODONE 325-5 MG Tab PO PRN (21:10)
[2023-11-24 12:28] VITALS: BP 142/78; PULSE 103
== END 2023-11-24 13:33 | disposition home or self-care (01) | DRG 540 ==
LOC: MW.OB 05:10 → INTOOBSV 05:10 → OBSVTOIN 09:22 → MW.OB 09:22
PROVIDERS: ADMIT Obstetrics & Gynecology Obstetrics; ATTEND Obstetrics & Gynecology
PROC: 10D00Z1 Extraction of Products of Conception, Low, Open Approach (ICD-10-PCS; principal; 2023-11-22 08:00)
DX: O34.211 Maternal care for low transverse scar from previous cesarean delivery (principal); O99.284 Endocrine, nutritional and metabolic diseases complicating childbirth; E03.9 Hypothyroidism, unspecified; O26.893 Other specified pregnancy related conditions, third trimester; Z67.11 Type A blood, Rh negative; Z37.0 Single live birth; Z3A.38 38 weeks gestation of pregnancy; Z88.1 Allergy status to other antibiotic agents; Z88.8 Allergy status to other drugs, medicaments and biological substances; Z79.82 Long term (current) use of aspirin; Z79.899 Other long term (current) drug therapy
CPT/HCPCS: 36415; 59025; 85014; 85018; 85027; 86592; 86850; 86900; 86901; 86920; 86921; 86922; A9270-GY; J0131; J0171; J0665; J0690; J1100; J1200; J1790; J1885; J2274; J2371; J2405; J2590; J2795; J3010; J3490; J7120